=== PATIENT | male | born 1995 | race Hispanic/Latino ===

== ENCOUNTER 2019-05-18 19:49 | Emergency (ER) | payer OTHER ==
[~2019-05-18] VITALS: Ht 170.2 cm; Wt 62.7 kg
[2019-05-18] MEDS ORDERED: predniSONE 20 MG TAB PO ONE (21:30)
[2019-05-18] MEDS ORDERED: PRED20TA PO (21:35)
[2019-05-18 21:44] VITALS: BP 126/84
[2019-05-19] MEDS ORDERED: PRED20TA PO (00:59)
== END 2019-05-18 21:45 | disposition home or self-care (01) ==
LOC: M ED 19:49
DX: L25.9 Unspecified contact dermatitis, unspecified cause (principal)